=== PATIENT | female | born 1980 | race African-American/Black ===

== ENCOUNTER 2018-06-02 22:46 | Emergency (ER) | payer OTHER ==
[~2018-06-02] VITALS: Ht 162.6 cm; Wt 63.5 kg
[2018-06-03] MEDS ORDERED: BENADRYL25 MG PO (03:24)
[2018-06-03] MEDS ORDERED: MEDROL8 MG PO (03:24)
== END 2018-06-03 03:40 | disposition home or self-care (01) ==
LOC: ER 22:46
DX: K12.39 Other oral mucositis (ulcerative) (principal)